=== PATIENT | male | born 1960 | race Caucasian/White ===

== ENCOUNTER 2020-07-29 13:45 | Emergency (ER) | payer MEDICAID, SELFPAY ==
[2020-07-29] VITALS (23 sets, daily range): BP systolic 110–147; BP diastolic 67–80; PULSE 57–94; RESP 17–31; TEMP 36.1; O2SAT 96–100
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
[2020-07-29 14:25] LABS: Abs Immature Grans 0.08 10^3/uL (0.0-0.06); Basophils % 0.5; Eosinophils % 0.6; HCT 48.8 % (40.0-50.0); Immature Grans % 0.2; MCHC 32.8 % (32.0-36.0); MCV 94.6 fL (80-95); MPV 10.6 fL (8.0-11.0); Monocytes % 1.8; Neutrophils % 13.1; Nucleated RBC 0 %; Platelet Count 211 10^3/uL (130-400); RBC 5.16 10^6/uL (4.36-5.78); RDW 12.5 % (11.8-14.1); RDW-SD 43.3 fL
[2020-07-29 14:43] LABS: Absolute Basophil Count 0.19 10^3/uL (0.0-0.2); Absolute Eosinophil Count 0.23 10^3/uL (0.0-0.7); Absolute Lymphocyte Count 31.71 10^3/uL (1.2-3.4); Absolute Monocyte Count 0.68 10^3/uL (0.1-0.8); Absolute Neutrophil Count 4.96 10^3/uL (1.2-6.7)
[2020-07-29 14:45] LABS: WBC 37.84 10^3/uL (4.4-10.8)
[2020-07-29 14:46] LABS: Diff Comment Agrees w/ Instrument; RBC Morphology Normal
[2020-07-29 14:47] LABS: Lymphocytes % 83.8; PTT Activated 19.9 sec (21.0-27.5); Prothrombin Time 9.9 sec (9.3-11.0)
[2020-07-29 14:49] LABS: ALT 19 U/L (16-63); AST 22 U/L (15-37); Albumin 3.9 g/dL (3.4-5.0); Alkaline Phosphatase 81 U/L (46-116); BUN 17 mg/dL (7-18); Bilirubin, Total 0.4 mg/dL (0.2-1.0); CREATININE 0.8 mg/dL (0.70-1.30); Calcium 8.6 mg/dL (8.5-10.1); Chloride 107 mmol/L (98-107); Glucose 118 mg/dL (74-106); Potassium 3.6 mmol/L (3.5-5.1); Sodium 144 mmol/L (136-145); Total Protein 7.1 g/dL (6.4-8.2)
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
[2020-07-29] MEDS: Normal Saline - Diluent 50 ML VIAL IV (15:47)
[2020-07-29] MEDS: Omnipaque 350 MG/ML 100 ML BTL IJ (15:47)
== END 2020-07-29 18:14 | disposition left against medical advice (07) ==
LOC: ER 18:14
PROVIDERS: Emergency Provider Student in an Organized Health Care Education/Training Program; PCP Nurse Practitioner Family
DX: S01.01XA Laceration without foreign body of scalp, initial encounter (principal); S01.81XA Laceration without foreign body of other part of head, initial encounter; S27.0XXA Traumatic pneumothorax, initial encounter; S22.42XA Multiple fractures of ribs, left side, initial encounter for closed fracture; W30.89XA Contact with other specified agricultural machinery, initial encounter; D72.820 Lymphocytosis (symptomatic); Z53.29 Procedure and treatment not carried out because of patient's decision for other reasons
CPT/HCPCS: 12002; 12014; 73552; 74177; 80053; 86850; 86900; 86901; 90471; 99285; 70450; 71260; 72125; 85025; 85610; 85730; 99284; J3490

== ENCOUNTER 2022-09-21 14:00 | Observation (INO) | payer MEDICAID, SELFPAY ==
[2022-09-21] VITALS (10 sets, daily range): BP systolic 110–172; BP diastolic 57–86; PULSE 61–90; RESP 12–20; TEMP 36.6–37.8; O2SAT 92–98; BMI 24.3
--- NOTE | 2022-09-21 14:45 | NUR.NOTE ---
Nursing Note: Assumed care of patient at this time.
--- NOTE | 2022-09-21 15:00 | DI.CT_ITS ---
Exam(s) CT ABDOMEN PELVIS W EXAM: CT ABDOMEN PELVIS W CLINICAL HISTORY: rlq pain. TECHNIQUE: Imaging Protocol: Axial computed tomography images with coronal and sagittal reformatted images were created and reviewed CONTRAST MATERIAL: Intravenous: Omnipaque 350 Contrast volume:100 ml Oral: yes / COMPARISON: CT CT CHEST/ABD/PEL W from 07/29/2020 FINDINGS: ABDOMEN: Lung Bases: Normal where visualized. Liver: Normal density. No measurable mass. Gallbladder and biliary tract: No radiodense calculus or dilation. Pancreas: Normal density, no abnormal calcifications or inflammatory process. Spleen: Normal. Kidneys: Normal size, contour and axis. No radiodense stones or obstructive uropathy. Parapelvic cyst s. No suspicious masses seen. Adrenal glands: No masses seen. Abdominal Aorta: Abdominal portion non-dilated. Soft tissues: Fatty containing umbilical hernia. PELVIS: Bladder: Mild wall thickening. No calculi.No focal mass. Bowel: No obstruction. No bowel wall thickening. Appendix dilated. Appendicoliths seen at base of t he appendix. Surrounding stranding, consistent with appendicitis. Diverticulosis without evidence of diverticulitis.. Peritoneal cavity: No ascites or focal collection. No free air. Bones: Degenerative changes greatest at L5-S1. Reproductive organs: Prostate slightly enlarged. Lymph nodes: Unremarkable. Impression: Findings consistent with acute appendicitis. No perforation or abscess. RADIATION DOSE DELIVERED: 692.09mGy.cm Total DLP DATA REPOSITORY: All CT scans at this facility are submitted to the National Radiology Data Registry (NRDR) Dose Index Registry (DIR) with the [employer] (ACR). RADIATION OPTIMIZATION: All CT scans at this facility use at least one of these dose optimization te chniques: automated exposure control; mA and/or kV adjustment per patient size (includes targeted exa ms where dose is matched to clinical indication); or iterative reconstruction.
[2022-09-21] MEDS: Normal Saline 1,000 ML 1000 ML IV (15:28)
[2022-09-21 15:31] LABS: Lactate 1.2 mmol/L (0.6-1.4)
[2022-09-21 15:33] LABS: Abs Immature Grans 0.16 10^3/uL (0.0-0.06); HCT 49.4 % (40.0-50.0); HGB 16.4 g/dL (13.5-17.5); MCH 31.5 pg (27.0-33.0); MCHC 33.2 % (32.0-36.0); MCV 95 fL (80-95); MPV 10.9 fL (8.0-11.0); Platelet Count 186 10^3/uL (130-400); RDW 12.8 % (11.8-14.1); RDW-SD 44.6 fL
--- NOTE | 2022-09-21 15:35 | ED.GENADUL_ITS ---
Discharge Plan Discharge Details Chief Complaint: Abd Prob Primary Care Provider: Bria Mora ED Provider: Darin Choi Home Meds and New Rx's Prescriptions: No Action No Known Home Meds Medical Decision Making Patient presenting the emergency department chief complaint of abdominal pain. Patient states last night he started having abdominal pain, and diarrhea. Today he has had subjective fever and chills otherwise denies all other symptoms. Patient has no injury or trauma, does not take any medications, no history of abdominal surgeries. Physical exam shows mild right CVA tenderness with significant right lower quadrant tenderness and guarding. Normal active bowel sounds otherwise unremarkable exam. Will check labs and CT imaging. Pending results will give patient ketorolac and IV fluids Patient signed out pending review of labs and CT imaging along with disposition after results. HPI General Mode of arrival: ambulatory . Date/Time Provider Initiated Documentation: 09/21/22 14:30 . Limitations to Documentation: no limitations . Information obtained by: patient and RN notes reviewed . History of Present Illness 62 year old M presents to the emergency department with the chief complaint of Abdominal pain, described as moderate, Quality is described as aching, and is localized to the abdomen. Patient reports no radiation. Patient started experiencing this day(s) (1) and it has been constant. No relieving factors improve symptom(s), No exacerbating factors reported . Patient notes fever/chills, loss of appetite and malaise. Patient did receive the following treatments prior to arrival, none Related Data Home Medications Medication Instructions Recorded Confirmed Unknown [No Known Home Meds] 09/21/22 09/21/22 Allergies Allergy/AdvReac Type Severity Reaction Status Date / Time No Known Drug Allergies Allergy Unverified 09/21/22 14:12 General Stated Complaint: Abd Prob HAWK: 3 Review of Systems Constitutional Constitutional: Denies chills, Reports fever(s) and Reports poor appetite Cardiovascular Cardiovascular: Denies chest pain and Denies dyspnea Respiratory Respiratory: Denies cough and Denies dyspnea Gastrointestinal Gastrointestinal: Reports as per HPI, Reports abdominal pain, Denies melena, Denies change in bowel habits, Denies constipation, Reports diarrhea, Denies nausea and Denies vomiting Genitourinary Genitourinary: Denies hematuria, Denies difficulty urinating, Denies urinary hesitancy, Denies urinary incontinence and Denies urinary urgency Integumentary/Breasts Skin/Breast: Denies rash PFSH All Active Problems Laceration of scalp (Acute) Complex laceration of face (Acute) Pneumothorax on left (Acute) Multiple rib fractures (Acute) Lymphocytosis (Acute) Social History Smoking/Tobacco Use Status: Never Smoking risk assessment performed?: Yes Housing: house Exam Const General: cooperative Orientation: alert, awake and oriented x3 Resp Effort & Inspection: normal respiratory effort and able to speak in complete sentences Auscultation: clear to auscultation bilaterally Cardio Rate: regular rate Rhythm: regular rhythm Heart Sounds: S1 normal and S2 normal GI Palpation: soft, no hepatosplenomegaly, not firm, guarding in the RLQ, no masses, no pulsatile masses, not rigid, no splenomegaly and tender in the RLQ Auscultation: normal bowel sounds General: CVA tenderness on the right Back/Spine/Pelvis Back: CVA tenderness Neuro General: patient alert, patient awake, patient oriented x3, gait normal and moves all extremities Course Vital Signs Vital signs: Vital Signs Temperature 37.2 C 09/21/22 14:08 Pulse 90 09/21/22 14:08 Respiratory Rate 20 09/21/22 14:08 Blood Pressure 155/77 H 09/21/22 14:08 Pulse Oximetry 96 09/21/22 14:08 Temperature 37.2 C 09/21/22 14:08 Temperature Source Oral 09/21/22 14:08 Pulse 90 09/21/22 14:08 Respiratory Rate 20 09/21/22 14:08 Respiratory Effort Normal 09/21/22 15:08 Blood Pressure 155/77 H 09/21/22 14:08 Blood Pressure Position Sitting 09/21/22 14:08 Pulse Oximetry 96 09/21/22 14:08 Oxygen Delivery Method Room Air 09/21/22 14:08 Oxygen Flow Rate 0 09/21/22 14:08 Pain Level 7 09/21/22 14:08 Lab/Test Results Lab/Test Results: Laboratory Tests Range/Units 09/21/22 15:25 VBG Lactate (0.6-1.4) mmol/L 1.2 Sign Out Sign Out Data: Sign Out Comment: Patient pending review of labs and CT imaging for right lower quadrant abdominal pain. Last updated by Darin Choi NP at 09/21/22 15:38
[2022-09-21 15:37] LABS: WBC 40.69 10^3/uL (4.4-10.8)
[2022-09-21 15:45] LABS: Bilirubin Small (Negative); Blood Moderate (Negative); Clarity Clear (Clear); Glucose Negative (Negative); Ketones >=160 mg/dL (Negative); Leukocyte Esterase Negative (Negative); Nitrite Negative (Negative); Specific Gravity >= 1.030 (1.005-1.025); Urobilinogen 0.2 mg/dL (Up to 0.2); pH 5.5 (5-8)
[2022-09-21 15:54] LABS: Bacteria Negative HPF (Negative); C & S Indicated? No; Casts Negative LPF (Negative); Crystals Negative HPF (Negative); Epithelial Cells Rare HPF (Negative); Lipase 22 U/L (16-77); Mucus Trace (Negative); WBC 0-2 HPF (0-5)
[2022-09-21 15:57] LABS: Absolute Lymphocyte Count 26.45 10^3/uL (1.2-3.4); Absolute Monocyte Count 0.81 10^3/uL (0.1-0.8); Absolute Neutrophil Count 13.43 10^3/uL (1.2-6.7)
[2022-09-21 15:58] LABS: Diff Comment Manual Differential; RBC Morphology Normal
[2022-09-21 16:02] LABS: ALT 16 U/L (16-63); AST 19 U/L (15-37); Albumin 4.3 g/dL (3.4-5.0); Alkaline Phosphatase 130 U/L (46-116); Anion Gap 11.9 mmol/L (3-11); BUN 12 mg/dL (7-18); CO2 26.1 mmol/L (21.0-32.0); CREATININE 0.9 mg/dL (0.70-1.30); Calcium 9.3 mg/dL (8.5-10.1); Chloride 101 mmol/L (98-107); Estimated GFR 95.97 (mL/min/1.73m2); Glucose 103 mg/dL (74-106); Magnesium 1.8 mg/dL (1.8-2.4); Potassium 3.9 mmol/L (3.5-5.1); Sodium 139 mmol/L (136-145); Total Protein 8.4 g/dL (6.4-8.2)
[2022-09-21] MEDS: Normal Saline Flush 10 ML SYR IVP ×2 (16:13→22:02)
[2022-09-21] MEDS: Normal Saline - Diluent 50 ML VIAL IJ (16:13)
[2022-09-21] MEDS: Omnipaque 350 MG/ML 100 ML BTL IJ (16:14)
--- NOTE | 2022-09-21 18:33 | DI.VRAD_ITS ---
Addendum created by Lydia Rosario MD on 09/21/2022 6:43:49 PM EDT: This report contains findings that may be critical to patient care. The pertinent findings were communicated via telephone with KAITLIN Sparks at 18:43 EDT on 09/21/2022. The findings were acknowledged and understood. Initial report created on 09/21/2022 6:32:57 PM EDT: PROCEDURE INFORMATION: Exam: CT Abdomen And Pelvis With Contrast Exam date and time: 09/21/2022 16:21 Age: 62 years old Clinical indication: Abdominal pain; Localized; Right lower quadrant (rlq); Patient HX: Rlq pain TECHNIQUE: Imaging protocol: Computed tomography of the abdomen and pelvis with contrast. Contrast material: OMNIPAQUE 350; Contrast volume: 100 ml; Contrast route: INTRAVENOUS (IV); COMPARISON: CT CHEST/ABD/PEL W 07/29/2020 15:40 FINDINGS: Lungs: Minimal dependent subsegmental atelectasis. Liver: No mass. Gallbladder and bile ducts: No calcified stones. No ductal dilation. Pancreas: No ductal dilation. No masses. Spleen: No splenomegaly or focal lesions. Adrenal glands: No mass. Kidneys and ureters: Favor benign parapelvic cysts in the kidneys. No convincing nephrolithiasis. No renal masses. Stomach and bowel: Colonic diverticulosis without diverticulitis. No focal pathology in the small bowel. Appendix: Proximal to mid appendix is decompressed. Distally there is an appendiceal calculus in the appendix is distended to 16 mm with mild mucosal hyperemia, thickening and mild surrounding edema. Intraperitoneal space: No abscess or free air. Vasculature: No abdominal aortic aneurysm. Lymph nodes: No significantly enlarged lymph nodes. Urinary bladder: Bladder wall upper limits of normal for mild degree of distension. Reproductive: Mild prostatic enlargement. Bones/joints: Chronic bony changes with no acute fracture. Soft tissues: Moderate fat-containing umbilical hernia. IMPRESSION: 1. Acute appendicitis. No perforation or abscess. 2. Additional findings as described. Dictated and Authenticated by: Lydia Rosario MD. Ordering:SURESH Webster MD
--- NOTE | 2022-09-21 18:40 | ED.GENADUL_ITS ---
Discharge Plan Disposition Patient Disposition: Admit to [facility] Condition: Stable Discharge Details Chief Complaint: Abd Prob Clinical Impression: Acute appendicitis Primary Care Provider: Bria Mora ED Provider: Phyllis Sparks Home Meds and New Rx's Prescriptions: No Action No Known Home Meds HPI General Mode of arrival: ambulatory . Date/Time Provider Initiated Documentation: 09/21/22 14:30 . Limitations to Documentation: no limitations . Information obtained by: patient and RN notes reviewed . History of Present Illness Quality is described as aching, and is localized to the abdomen. No relieving factors improve symptom(s), No exacerbating factors reported . Patient notes fever/chills, loss of appetite and malaise. Patient did receive the following treatments prior to arrival, none HPI Narrative: Chart reviewed please see notes initiated by Heriberto Choi APRN. Care of patient was assumed pending CAT scan results. Related Data Home Medications Medication Instructions Recorded Confirmed Unknown [No Known Home Meds] 09/21/22 09/21/22 Allergies Allergy/AdvReac Type Severity Reaction Status Date / Time No Known Drug Allergies Allergy Unverified 09/21/22 14:12 General Stated Complaint: Abd Prob HAWK: 3 PFSH All Active Problems (Updated 09/21/22 @ 18:41 by Phyllis Sparks NP) Laceration of scalp (Acute) Complex laceration of face (Acute) Pneumothorax on left (Acute) Multiple rib fractures (Acute) Lymphocytosis (Acute) Acute appendicitis (Acute) Social History Smoking/Tobacco Use Status: Never Smoking risk assessment performed?: Yes Housing: house Course Vital Signs Vital signs: Vital Signs Temperature 37.2 C 09/21/22 14:08 Pulse 90 09/21/22 14:08 Respiratory Rate 20 09/21/22 14:08 Blood Pressure 155/77 H 09/21/22 14:08 Pulse Oximetry 96 09/21/22 14:08 Temperature 37.2 C 09/21/22 14:08 Temperature Source Oral 09/21/22 14:08 Pulse 73 09/21/22 17:15 Respiratory Rate 16 09/21/22 17:15 Respiratory Effort Normal 09/21/22 15:08 Blood Pressure 172/67 H 09/21/22 17:15 Blood Pressure Position Sitting 08/11/23 14:08 Pulse Oximetry 97 09/21/22 17:15 Oxygen Delivery Method Room Air 09/21/22 17:15 Oxygen Flow Rate 0 09/21/22 17:15 Pain Level 3 09/21/22 17:15 Lab/Test Results Lab/Test Results: Laboratory Tests Range/Units 09/21/22 09/21/22 09/21/22 15:25 15:25 15:25 WBC (4.4-10.8) 10^3/uL RBC (4.36-5.78) 10^6/uL Hgb (13.5-17.5) g/dL Hct (40.0-50.0) % MCV (80-95) fL MCH (27.0-33.0) pg MCHC (32.0-36.0) % RDW (11.8-14.1) % Plt Count (130-400) 10^3/uL MPV (8.0-11.0) fL Immature Gran % Neutrophils % Lymphocytes % Monocytes % Eosinophils % Basophils % Nucleated RBC % (0.0-0.3) % Absolute Neutrophils (1.2-6.7) 10^3/uL Absolute Lymphocytes (1.2-3.4) 10^3/uL Absolute Monocytes (0.1-0.8) 10^3/uL Absolute Eosinophils (0.0-0.7) 10^3/uL Absolute Basophils (0.0-0.2) 10^3/uL RBC Morphology VBG Lactate (0.6-1.4) mmol/L 1.2 Sodium (136-145) mmol/L 139 Potassium (3.5-5.1) mmol/L 3.9 Chloride (98-107) mmol/L 101 Carbon Dioxide (21.0-32.0) mmol/L 26.1 Anion Gap (3-11) mmol/L 11.9 H BUN (7-18) mg/dL 12 Creatinine (0.70-1.30) mg/dL 0.9 Est GFR (CKD-EPI 2020) (mL/min/1.73m2) 95.97 Glucose (74-106) mg/dL 103 Calcium (8.5-10.1) mg/dL 9.3 Magnesium (1.8-2.4) mg/dL 1.8 Total Bilirubin (0.2-1.0) mg/dL 1.0 AST (15-37) U/L 19 ALT (16-63) U/L 16 Alkaline Phosphatase (46-116) U/L 130 H Total Protein (6.4-8.2) g/dL 8.4 H Albumin (3.4-5.0) g/dL 4.3 Lipase (16-77) U/L 22 Urine Color (Yellow) Urine Clarity (Clear) Urine pH (5-8) Ur Specific [place] (1.005-1.025) Urine Protein (Negative) mg/dL Urine Ketones (Negative) mg/dL Urine Blood (Negative) Urine Nitrite (Negative) Urine Bilirubin (Negative) Urine Urobilinogen (Up to 0.2) mg/dL Ur Leukocyte Esterase (Negative) Urine RBC (0-2) HPF Urine WBC (0-5) HPF Ur Epithelial Cells (Negative) HPF Urine Crystals (Negative) HPF Urine Bacteria (Negative) HPF Urine Casts (Negative) LPF Urine Mucus (Negative) Ur Culture Indicated? Urine Glucose (Negative) mg/dL Range/Units 09/21/22 09/21/22 15:25 15:25 WBC (4.4-10.8) 10^3/uL 40.69 H* RBC (4.36-5.78) 10^6/uL 5.20 Hgb (13.5-17.5) g/dL 16.4 Hct (40.0-50.0) % 49.4 MCV (80-95) fL 95 MCH (27.0-33.0) pg 31.5 MCHC (32.0-36.0) % 33.2 RDW (11.8-14.1) % 12.8 Plt Count (130-400) 10^3/uL 186 MPV (8.0-11.0) fL 10.9 Immature Gran % 0.0 Neutrophils % 33.0 Lymphocytes % 65.0 Monocytes % 2.0 Eosinophils % 0.0 Basophils % 0.0 Nucleated RBC % (0.0-0.3) % 0.0 Absolute Neutrophils (1.2-6.7) 10^3/uL 13.43 H Absolute Lymphocytes (1.2-3.4) 10^3/uL 26.45 H Absolute Monocytes (0.1-0.8) 10^3/uL 0.81 H Absolute Eosinophils (0.0-0.7) 10^3/uL 0.00 Absolute Basophils (0.0-0.2) 10^3/uL 0.00 RBC Morphology Normal VBG Lactate (0.6-1.4) mmol/L Sodium (136-145) mmol/L Potassium (3.5-5.1) mmol/L Chloride (98-107) mmol/L Carbon Dioxide (21.0-32.0) mmol/L Anion Gap (3-11) mmol/L BUN (7-18) mg/dL Creatinine (0.70-1.30) mg/dL Est GFR (CKD-EPI 2020) (mL/min/1.73m2) Glucose (74-106) mg/dL Calcium (8.5-10.1) mg/dL Magnesium (1.8-2.4) mg/dL Total Bilirubin (0.2-1.0) mg/dL AST (15-37) U/L ALT (16-63) U/L Alkaline Phosphatase (46-116) U/L Total Protein (6.4-8.2) g/dL Albumin (3.4-5.0) g/dL Lipase (16-77) U/L Urine Color (Yellow) Yellow Urine Clarity (Clear) Clear Urine pH (5-8) 5.5 Ur Specific [place] (1.005-1.025) >= 1.030 H Urine Protein (Negative) mg/dL Trace H Urine Ketones (Negative) mg/dL >=160 H Urine Blood (Negative) Moderate H Urine Nitrite (Negative) Negative Urine Bilirubin (Negative) Small H Urine Urobilinogen (Up to 0.2) mg/dL 0.2 Ur Leukocyte Esterase (Negative) Negative Urine RBC (0-2) HPF 3-5 H Urine WBC (0-5) HPF 0-2 Ur Epithelial Cells (Negative) HPF Rare Urine Crystals (Negative) HPF Negative Urine Bacteria (Negative) HPF Negative Urine Casts (Negative) LPF Negative Urine Mucus (Negative) Trace Ur Culture Indicated? No Urine Glucose (Negative) mg/dL Negative Sign Out Sign Out Data: Sign Out Comment: Patient pending review of labs and CT imaging for right lower quadrant abdominal pain. Last updated by Darin Choi NP at 09/21/22 15:38
[2022-09-21] MEDS: PIPERACILLIN/TAZO 3.375 GM in Normal Saline 50 ML IVPB (18:50)
--- NOTE | 2022-09-21 19:06 | NUR.NOTE ---
Nursing Note: Report to Angeles QUIROGA
--- NOTE | 2022-09-21 19:13 | HPE_ITS ---
Date of service: 09/21/22 Time of Service: 18:45 Assessment and Plan Assessment and plan (1) Acute appendicitis: Status: Acute Assessment and plan: Mr. Sandhu is a pleasant 62 year old male with acute appendicitis. He came to the ER with RLQ pain and diarrhea and 16 hours. Discussed the pathophysiology of appendicitis. We discussed the treatment option of Laparoscopic appendectomy (possibly open) vs antibiotic treatment. We discussed pros and cons of both. Patient wishes to proceed with Laparoscopic appendectomy. He had a good understanding or the procedure and its possible complications after hour converstaion. Risks, benefits and complications have been reviewed. Complications include but are not limited to bleeding, infection, injury to adjacent bowel, abscess formation, staple line leak, inability to do the procedure laparoscopically and adverse reaction to the medications. Questions were entertained and answered to their satisfaction and they wished to proceed. No guarantees were given or implied. History of Present Illness Consults Consult date: 09/21/22 Requesting physician: Phyllis Sparks Narrative: Mr. Alvarado is a pleasant 62 year old male who cam to the ER complaining of RLQ pain and diarrhea for 16 hours. 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 He took a shower and then started with diarrhea and pain which lasted all night and into today. When his got home from work she brought him to the ER. Workup in the ER showed a Leukocytosis of > 40,000. He had a lymphocytosis back in 2020 when he was seen in the ER. he never followed up with his PCP about it. He has no splenomegally on CT scan. He has no easy bruising or easy bleeding. He has no Cardiac history or pulmonary complaints. He does have blood in his urine today but no Bacteria or leukocyte esteraces. I reviewed the CT scan myself. CT scan showes a dilated tip of the appendix with a fecolith. Review of Systems Constitutional Constitutional: Reports fever(s), Denies headache(s) and Reports poor appetite Eyes Eyes: Denies change in vision ENT Ears, Nose, Mouth, and Throat: Denies change in voice, Denies dysphagia and Denies headache(s) Cardiovascular Cardiovascular: Denies chest pain, Denies chest pain at rest, Denies chest pain with activity, Denies palpitations, Denies dyspnea and Denies dyspnea on exertion Respiratory Respiratory: Denies cough, Denies dyspnea and Denies dyspnea on exertion Gastrointestinal Gastrointestinal: Reports as per HPI, Denies dysphagia, Denies dyspepsia and Denies heartburn Genitourinary Genitourinary: Reports system reviewed and no additional complaints, except as documented Musculoskeletal Musculoskeletal: Reports system reviewed and no additional complaints, except as documented Integumentary/Breasts Skin/Breast: Reports system reviewed and no additional complaints, except as documented Neurologic Neurologic: Reports system reviewed and no additional complaints, except as documented and Denies headache(s) Psychiatric Psychiatric: Reports system reviewed and no additional complaints, except as documented Endocrine Endocrine: Reports system reviewed and no additional complaints, except as documented and Denies palpitations Hematologic/Lymphatic Hematologic/Lymphatic: Reports system reviewed and no additional complaints, except as documented Allergic/Immunologic Allergic/Immunologic: Reports system reviewed and no additional complaints, except as documented PFSH All Active Problems Lymphocytosis (Acute) Acute appendicitis (Acute) Medical History Complex laceration of face Laceration of scalp Multiple rib fractures Pneumothorax on left Social History (Updated 09/21/22 @ 19:19 by Juju Thompson MD) Smoking/Tobacco Use Status: Never Smoking risk assessment performed?: Yes Alcohol Intake: current Alcohol Intake frequency: holidays/special occasions only Drug use: Never Household members: spouse Housing: house current occupation: owns his own [employer] business Meds Allergies and Home Medications Allergies Allergy/AdvReac Type Severity Reaction Status Date / Time No Known Drug Allergies Allergy Unverified 09/21/22 14:12 Home Medications Medication Instructions Recorded Confirmed Type Unknown [No Known Home Meds] 09/21/22 09/21/22 History Exam Const General: cooperative, healthy appearing, comfortable and no acute distress Nutritional Appearance: thin Orientation: alert, awake and oriented x3 HENMT Head: normocephalic and atraumatic Resp Effort & Inspection: normal respiratory effort Auscultation: clear to auscultation bilaterally Cardio Rate: regular rate Rhythm: regular rhythm Heart Sounds: no gallops, no murmurs and no rubs GI Inspection: normal to inspection Palpation: soft, no hepatosplenomegaly and tender in the RLQ (no guarding or rebound) General: deferred Results Imaging Abdomen CT scan report/results: report reviewed and image reviewed CT scan - pelvis: report reviewed and image reviewed Labs 09/21/22 15:25 09/21/22 15:25 Labs: Laboratory Results - last 24 hr 09/21/22 09/21/22 09/21/22 15:25 15:25 15:25 WBC RBC Hgb Hct MCV MCH MCHC RDW Plt Count MPV Immature Gran % Neutrophils % Lymphocytes % Monocytes % Eosinophils % Basophils % Nucleated RBC % Absolute Neutrophils Absolute Lymphocytes Absolute Monocytes Absolute Eosinophils Absolute Basophils RBC Morphology VBG Lactate 1.2 Sodium 139 Potassium 3.9 Chloride 101 Carbon Dioxide 26.1 Anion Gap 11.9 H BUN 12 Creatinine 0.9 Est GFR (CKD-EPI 2020) 95.97 Glucose 103 Calcium 9.3 Magnesium 1.8 Total Bilirubin 1.0 AST 19 ALT 16 Alkaline Phosphatase 130 H Total Protein 8.4 H Albumin 4.3 Lipase 22 Urine Color Urine Clarity Urine pH Ur Specific [place] Urine Protein Urine Ketones Urine Blood Urine Nitrite Urine Bilirubin Urine Urobilinogen Ur Leukocyte Esterase Urine RBC Urine WBC Ur Epithelial Cells Urine Crystals Urine Bacteria Urine Casts Urine Mucus Ur Culture Indicated? Urine Glucose 09/21/22 09/21/22 15:25 15:25 WBC 40.69 H* RBC 5.20 Hgb 16.4 Hct 49.4 MCV 95 MCH 31.5 MCHC 33.2 RDW 12.8 Plt Count 186 MPV 10.9 Immature Gran % 0.0 Neutrophils % 33.0 Lymphocytes % 65.0 Monocytes % 2.0 Eosinophils % 0.0 Basophils % 0.0 Nucleated RBC % 0.0 Absolute Neutrophils 13.43 H Absolute Lymphocytes 26.45 H Absolute Monocytes 0.81 H Absolute Eosinophils 0.00 Absolute Basophils 0.00 RBC Morphology Normal VBG Lactate Sodium Potassium Chloride Carbon Dioxide Anion Gap BUN Creatinine Est GFR (CKD-EPI 2020) Glucose Calcium Magnesium Total Bilirubin AST ALT Alkaline Phosphatase Total Protein Albumin Lipase Urine Color Yellow Urine Clarity Clear Urine pH 5.5 Ur Specific [place] >= 1.030 H Urine Protein Trace H Urine Ketones >=160 H Urine Blood Moderate H Urine Nitrite Negative Urine Bilirubin Small H Urine Urobilinogen 0.2 Ur Leukocyte Esterase Negative Urine RBC 3-5 H Urine WBC 0-2 Ur Epithelial Cells Rare Urine Crystals Negative Urine Bacteria Negative Urine Casts Negative Urine Mucus Trace Ur Culture Indicated? No Urine Glucose Negative Last Vital Signs Temp 100.0 F H 09/21/22 18:51 Pulse 75 09/21/22 18:51 Resp 18 09/21/22 18:51 BP 168/86 H 09/21/22 18:51 Pulse Ox 95 09/21/22 18:51 Time Spent Time spent with Patient: <40 minutes Time was spent: preparing to see the patient(eg.review tests), referring, communicating with other health child care counselor, indepentently interpreting results and counseling the patient
--- NOTE | 2022-09-21 19:27 | ANES.PREOP_ITS ---
General Info Date of Service Date Performed: 09/21/22 Height: 5 ft 9 in Weight: 74.843 kg Body Mass Index (BMI): 24.3 Meds Allergies and Home Medications Allergies Allergy/AdvReac Type Severity Reaction Status Date / Time No Known Drug Allergies Allergy Unverified 09/21/22 14:12 Home Medication Medication Instructions Recorded Unknown [No Known Home Meds] 09/21/22 Current Visit Medications: Current Medications Generic Name Dose Route Start Last Admin Trade Name Amy PRN Reason Stop Dose Admin IV Miscellaneous Supplies 1 each 09/21/22 15:15 Iv Access-Emergency Dept IV DIRECTED RAPHAEL Iohexol 100 ml 09/21/22 16:15 09/21/22 16:14 Omnipaque 350 Mg/Ml 100 Ml Btl IJ 10/21/22 23:59 100 ml DIRECTED RAPHAEL Administration Sodium Chloride 0 ml 09/21/22 15:09 09/21/22 16:13 Normal Saline Flush 10 Ml Syr IVP 10 ml PRN PRN Administration Sodium Chloride 50 ml 09/21/22 16:15 09/21/22 16:13 Normal Saline - Diluent 50 Ml Vial IJ 50 ml .FOR DI USE RAPHAEL Administration PFSH Active Problems Active Problems: Problem Status Onset Code Lymphocytosis D72.820 Acute appendicitis K35.80 Medical History Medical History Complex laceration of face Laceration of scalp Multiple rib fractures Pneumothorax on left Tobacco Smoking/Tobacco Use Status: Never Alcohol Alcohol Intake: current Alcohol intake frequency: holidays/special occasions only Substance Use Substance use: Never Vital Signs and Lab Results Vital Signs Most Recent Vital Signs in EMR: Most Recent Vital Signs Temp Pulse Resp BP Pulse Ox 37.8 C H 75 18 168/86 H 95 09/21/22 18:51 09/21/22 18:51 09/21/22 18:51 09/21/22 18:51 09/21/22 18:51 Lab Results 09/21/22 15:25 09/21/22 15:25 Blood Type / Crossmatch: No Data to Display Complete Blood Count: White Blood Count 40.69 10^3/uL (4.4-10.8) H* 09/21/22 15:25 Red Blood Count 5.20 10^6/uL (4.36-5.78) 09/21/22 15:25 Hemoglobin 16.4 g/dL (13.5-17.5) 09/21/22 15:25 Hematocrit 49.4 % (40.0-50.0) 09/21/22 15:25 Platelet Count 186 10^3/uL (130-400) 09/21/22 15:25 Venous Blood Lactate 1.2 mmol/L (0.6-1.4) 09/21/22 15:25 Complete Metabolic Panel: Sodium 139 mmol/L (136-145) 09/21/22 15:25 Potassium 3.9 mmol/L (3.5-5.1) 09/21/22 15:25 Chloride 101 mmol/L (98-107) 09/21/22 15:25 Carbon Dioxide 26.1 mmol/L (21.0-32.0) 09/21/22 15:25 BUN 12 mg/dL (7-18) 09/21/22 15:25 Creatinine 0.9 mg/dL (0.70-1.30) 09/21/22 15:25 Est GFR (CKD-EPI 2020) 95.97 (mL/min/1.73m2) 09/21/22 15:25 Magnesium 1.8 mg/dL (1.8-2.4) 09/21/22 15:25 Calcium 9.3 mg/dL (8.5-10.1) 09/21/22 15:25 Albumin 4.3 g/dL (3.4-5.0) 09/21/22 15:25 Glucose 103 mg/dL (74-106) 09/21/22 15:25 Liver Function Panel: Alanine Aminotransferase (ALT/SGPT) 16 U/L (16-63) 09/21/22 15: 25 Aspartate Amino Transf (AST/SGOT) 19 U/L (15-37) 09/21/22 15:25 Coagulation Panel: No Data to Display Cardiac Panel: No Data to Display Arterial Blood Gas: No Data to Display Venous Blood Gas: No Data to Display Pancreas Panel: Lipase 22 U/L (16-77) 09/21/22 15:25 Thyroid Panel: No Data to Display Infectious Disease: No Data to Display Blood Cultures: No Data to Display Toxicology Panel: No Data to Display Anesthesia Assessment and Plan Anesthesia History Personal History: No History of Anesthesia Complications Family History: No Family History of Anesthesia Complications Exercise Tolerance Exercise Tolerance: Metabolic Equivalents>4 Pertinent Negatives Pertinent Negatives: No Symptoms of GERD Cardiac & Pulmonary Exam Cardiac Exam: Normal S1/S2 Heart Sounds Pulmonary Exam: Clear Bilateral Breath Sounds Implantable Cardiac Device Does patient have a Pacemaker or an ICD?: No Airway Exam Known Difficult Airway: No Mallampati Class: 1 Mouth Opening: Normal (> 3cm) Thyromental Distance: Greater than 3 cm Neck Range of Motion: Full ROM Neck Circumference: Normal Teeth Condition: Normal Dentition ASA Classification ASA Score: ASA 2 Emergency Case?: Yes NPO Status NPO Status: NPO Clear Liquids>2 hours and NPO Small Non-Fatty Meal >6 hours Anesthesia Plan Resuscitation Status: Full Code Anesthesia Technique: General Anesthesia Airway Planned: Endotracheal Tube Monitors Used: Standard Monitors
[2022-09-21] MEDS: Lactated Ringers 1,000 ML 30 ML IV (19:50)
[2022-09-21] MEDS: Bupivacaine 0.25% Pres-Free 30 ML VIAL (20:34)
--- NOTE | 2022-09-21 20:41 | APP_PTH ---
PATIENT: Michael Alvarado LOC: U#:[id number] AGE/SX: 62/M ROOM: [id number] RE09/21/[address]: Juju Thompson MD : 1960 BED: A DIS: 09/22/2022 SPEC #: [id number] RECD: 09/24/22 13:02 STATUS: SAL REQ #: [id number] CARL: 09/21/22 20:[address]: Juju Thompson DEPT: Surgical Specimen RECD BY: Staci Douglas ENTERED: 09/24/22 13:05 SP TYPE: Appendix OTHR DR: Bria Mora Tissues: 1 - APPENDIX NOT INCIDENTAL Procedures: GROSS AND MICRO LEVEL 3 Comments: [id number]
--- NOTE | 2022-09-21 21:20 | W.ANESPOSTOP ---
Postoperative Evaluation Date, Time and Location Date Performed: 09/21/22 Time Performed: 21:20 Patient Location: PACU Vital Signs Most Recent Imported Vital Signs: Most Recent Vital Signs Temp Pulse Resp BP Pulse Ox 37.2 C 78 12 124/62 96 09/21/22 21:18 09/21/22 21:18 09/21/22 21:18 09/21/22 21:18 09/21/22 21:18 Pain Score Most Recent Pain Score: Most Recent Pain Score Pain Level 0 09/21/22 21:18 Assessment Mental Status: Awake (Alert & Oriented to Patient Baseline) Airway and Respiratory Function: Patent airway with normal (patient baseline) respiratory exam Cardiovascular Function: Hemodynamically Stable Hydration Status: Adequately Hydrated Nausea & Vomiting: No Nausea or Vomiting Pain: Pt. Denies Any Pain Peripheral Nerve Block: Patient did not receive a nerve block
--- NOTE | 2022-09-21 21:22 | ROE_ITS ---
Date of service: 09/21/22 Time of Service: 21:22 Operative Note Operative Note DATE OF PROCEDURE: 09/21/22 PRE-OP DIAGNOSIS: acute appendicitis POST-OP DIAGNOSIS: same PROCEDURE: Laparoscopic Appendectomy SURGEON: Juju Thompson [employer] RN: Monisha Marcano ANESTHESIA TYPE: Local By Surgeon and General LMA/ETT Refer to Anesthesia Record ESTIMATED BLOOD LOSS: 25 PATHOLOGY: other (appendix) COMPLICATIONS: None Patient was transported to: PACU Patient's condition: stable Indications: Mr. Sandhu is a pleasant 62 year old male with acute appendicitis. He came to the ER with RLQ pain and diarrhea and 16 hours. Discussed the pathophysiology of appendicitis. We discussed the treatment option of Laparoscopic appendectomy (possibly open) vs antibiotic treatment. We discussed pros and cons of both. Patient wishes to proceed with Laparoscopic appendectomy. He had a good understanding or the procedure and its possible complications after hour converstaion. Risks, benefits and complications have been reviewed. Complications include but are not limited to bleeding, infection, injury to adjacent bowel, abscess formation, staple line leak, inability to do the procedure laparoscopically and adverse reaction to the medications. Questions were entertained and answered to their satisfaction and they wished to proceed. No guarantees were given or implied. Findings: retrocecal appendix with tip dilated and ocated next to the Gallbladder Procedure Description: After informed consent was obtained the patient was taken to the operating room placed in the supine position, SCDs were applied as well as monitors. A timeout was done. The patient was then placed under general anesthesia and intubated without any difficulty. At this point the abdomen was prepped and draped in a sterile surgical fashion with chlorhexidine. A second timeout was done and the patient's name, date of , operation to be performed, DVT prophylaxis, antibiotic given, and fire risk was assessed. 0.25% Bupivocaine was injected into the dermis just above the umbilicus. A small 5 mm incision was made with an 11 blade. The subcutaneous tissue was dissected with a hemostat down to an umbilical hernia. The skin was grasped with penetrating towel clamps on either side of the incision and then using a Visiport a 5 mm port was placed under direct visualization through the hernia defect into the abdomen. The abdomen was insufflated. Local anesthetic was then injected just above the pubic symphysis just to the right of midline. A small 5 mm incision was made with an 11 blade and another 5 mm port was placed under direct visualization into the abdomen. The local anesthetic was then injected in the left lower quadrant area and a 12 mm incision was made with an 11 blade. A 12 mm port was then placed under direct visualization. The patient's bed was then turned to the left and head down allowing me to sweep of the small bowel out of the right lower quadrant. The cecum was identied at the level of the kidney and gently grasped. The appendix was identified going under the cecum. The tip was visualized at the Gallbladder. The tip was thickened and swollen. The tip felt rubbery. An opening was made in the mesentery and using a laparoscopic straight stapler the appendix was then transected at the junction with the cecum. No purulent fluid was noted. The appendix was grasped at the neck and pulled up slightly allowing me to visualize the mesoappendix. Using the laparoscopic LigaSure the mesoappendix was slowly transected. The appendix was placed into an Endo Catch bag and removed through the 12 mm port site. The port was placed back into the abdomen and the staple line was identified. No bleeding was noted. The transected mesentery was identified and no bleeding was noted. The abdomen was irrigated with 1 L of fluid. The 2 5 mm ports were then removed under direct visualization and no bleeding was noted from the fascia. The insufflation was stopped and the 12 mm port was removed. The 12 mm port site fascia was closed with a 0 Vicryl [id number] suture. The umbilical hernia defect was also closed with a 0 Vicryl figure of eight suture. The skin was then closed with 4-0 Vicryl. The skin was cleaned and dried and dermabond was applied. The patient was woken up, extubated and taken back to recovery room in stable condition. There were no immediate complications. Sponge, instrument and needl e counts were correct at the end of the case x2.
[2022-09-21] MEDS: Pantoprazole 40 MG VIAL IVP (22:02)
[2022-09-22] MEDS: PIPERACILLIN/TAZO 3.375 GM in Normal Saline 50 ML IVPB ×2 (01:39→08:30)
[2022-09-22] MEDS: Normal Saline Flush 10 ML SYR IVP (01:40)
[2022-09-22 01:51] VITALS: BP 155/83; PULSE 52; RESP 18; TEMP 36.3; O2SAT 100
[2022-09-22] MEDS: Lactated Ringers 1,000 ML 30 ML IV (03:02)
[2022-09-22 04:34] VITALS: BP 112/64; PULSE 64; RESP 16; TEMP 36.5; O2SAT 96
[2022-09-22 07:27] VITALS: BP 126/71; PULSE 67; RESP 16; TEMP 36.5; O2SAT 96
[2022-09-22] MEDS: Docusate Sodium 100 MG CAP PO (08:30)
--- NOTE | 2022-09-22 11:08 | W.PM.DS.N ---
Date of service: 09/22/22 Time of Service: 11:09 DS: Diagnosis Discharge Diagnosis (1) Acute appendicitis: Status: Acute Discharge Plan Disposition Patient Disposition: Home Condition: Stable Discharge Details Reason For Visit: Acute Appendicitis Admit Date/Time: 09/21/22 21:16 Admit Provider: Juju Thompson Attending Provider: Juju Thompson Primary Care Provider: Bria Mora Hospital Course Hospital Course: Mr Alvarado is POD #1 s/p Lap. Appi. He is doing very well. He has no pain today. He feels very well. No fevers overnight. We discussed the surgery and the findings. He will be discharged Home We discussed return precautions. Home Meds and New Rx's Prescriptions: Continued No Known Home Meds Discharge Instructions Instructions: Laparoscopic Appendectomy (DC) Additional Instructions: Activity at Home after surgery: 1. Make sure you walk outside at least 4 times per day 2. You should be able to climb a flight of stairs 3. No driving while in pain or taking pain medications 4. No strenuous activity or heavy lifting for 2 weeks (laparoscopic surgery) Diet, Nutrition, & wound healin. Avoid alcohol until after you are recovered from your surgery 2. Make sure to eat plenty of lean protein (meat, fish, eggs, cottage cheese, beans) 3. Eat a variety of fruits and vegetables. Eat plenty of high fiber foods to avoid constipation. 4. Drink plenty of liquids to stay hydrated and avoid constipation Pain Medications: 1. Tylenol 650mg every 6 hours as needed and Ibuprofen 600 mg every 6 hours as needed. You may alternate between the 2 medications every 3 hours 2. If a narcotic has been prescribed take as directed only for breakthrough pain For Constipation: 1. Take Milk of Magnesia or MiraLax as needed for constipation Other: 1. You may shower daily. Do not scrub the incisions 2. Do not soak the incisions for 1 week 3. You may alternate ice and heat as needed for pain and swelling Wound Care: 1. Keep the incisions clean and dry Please call our office if you develop: 1. Fevers >101.5 2. Nausea or Vomiting 3. Worsening pain 4. Redness and thick discharge from the wounds If after hours please call the Hospital at and ask to speak to the on-call surgeon Dr. Thompson's cell phone: [phone] Referrals: Juju Thompson MD [ [facility] ST[facility]FF [facility]YSICIAN] - Activity:: see above Equipment/Supplies:: No Equipment Needed Diet:: As Tolerated Discharge Orders Discharge Orders: Discharge Order (Routine); Ordered 09/22/22 Ordered By: Juju Thompson DS: Summary Time Spent with Patient providing and/or coordinating discharge services: Less than 30 minutes Status at Discharge Functional status at discharge: independent ambulation Overall status at discharge: patient is back to baseline Mental Status: mental status grossly normal Speech and Movement: speech and movement normal Mood: congruent mood Affect: normal affect Exam Const General: cooperative, comfortable and no acute distress Nutritional Appearance: thin Orientation: alert and oriented x3 HENMT Head: normocephalic and atraumatic Resp Effort & Inspection: normal respiratory effort Auscultation: clear to auscultation bilaterally Cardio Rate: regular rate Rhythm: regular rhythm GI Inspection: incision (c/d/i) Palpation: soft, no hepatosplenomegaly and nontender Psych Mental Status: mental status grossly normal Speech and Movement: speech and movement normal Mood: congruent mood Affect: normal affect DS: Data Vitals/I&O Vitals and I&O: Vital Signs Temperature 97.7 F 09/22/22 07:27 Temperature Source Tympanic 09/22/22 07:27 Pulse 67 09/22/22 07:27 Pulse Rhythm Irregular 09/22/22 08:15 Respiratory Rate 16 09/22/22 07:27 Respiratory Effort Normal 09/22/22 08:15 Respiratory Depth Normal 09/22/22 08:15 Respiratory Pattern Normal 09/22/22 08:15 Blood Pressure 126/71 09/22/22 07:27 Blood Pressure Position Sitting 09/21/22 14:08 Pulse Oximetry 96 09/22/22 07:27 Respiratory End-tidal CO2 32 09/21/22 21:23 Oxygen Delivery Method Room Air 09/22/22 07:27 Oxygen Flow Rate 0 09/22/22 07:27 Pain Level 0 09/22/22 07:27 Intake & Output 09/21/22 09/21/22 09/22/22 11:59 23:59 11:59 Intake Total 1650 / 1650 710.0 / 710.0 Output Total 625 / 625 Balance 1650 / 1650 85.0 / 85.0 Weight 165 lb Intake: IV 1650 / 1650 510.0 / 510.0 Oral 200 / 200 Output: Urine 625 / 625 Other: Urine Color Yellow Urine Appearance Clear Cloudy Data Completed and Pending Labs on day of discharge: Labs from last 24 hours 09/21/22 09/21/22 09/21/22 15:25 15:25 15:25 WBC 40.69 H* RBC 5.20 Hgb 16.4 Hct 49.4 MCV 95 MCH 31.5 MCHC 33.2 RDW 12.8 Plt Count 186 MPV 10.9 Immature Gran % 0.0 Neutrophils % 33.0 Lymphocytes % 65.0 Monocytes % 2.0 Eosinophils % 0.0 Basophils % 0.0 Nucleated RBC % 0.0 Absolute Neutrophils 13.43 H Absolute Lymphocytes 26.45 H Absolute Monocytes 0.81 H Absolute Eosinophils 0.00 Absolute Basophils 0.00 RBC Morphology Normal VBG Lactate Sodium 139 Potassium 3.9 Chloride 101 Carbon Dioxide 26.1 Anion Gap 11.9 H BUN 12 Creatinine 0.9 Est GFR (CKD-EPI 2020) 95.97 Glucose 103 Calcium 9.3 Magnesium 1.8 Total Bilirubin 1.0 AST 19 ALT 16 Alkaline Phosphatase 130 H Total Protein 8.4 H Albumin 4.3 Lipase Urine Color Yellow Urine Clarity Clear Urine pH 5.5 Ur Specific [place] >= 1.030 H Urine Protein Trace H Urine Ketones >=160 H Urine Blood Moderate H Urine Nitrite Negative Urine Bilirubin Small H Urine Urobilinogen 0.2 Ur Leukocyte Esterase Negative Urine RBC 3-5 H Urine WBC 0-2 Ur Epithelial Cells Rare Urine Crystals Negative Urine Bacteria Negative Urine Casts Negative Urine Mucus Trace Ur Culture Indicated? No Urine Glucose Negative 09/21/22 09/21/22 15:25 15:25 WBC RBC Hgb Hct MCV MCH MCHC RDW Plt Count MPV Immature Gran % Neutrophils % Lymphocytes % Monocytes % Eosinophils % Basophils % Nucleated RBC % Absolute Neutrophils Absolute Lymphocytes Absolute Monocytes Absolute Eosinophils Absolute Basophils RBC Morphology VBG Lactate 1.2 Sodium Potassium Chloride Carbon Dioxide Anion Gap BUN Creatinine Est GFR (CKD-EPI 2020) Glucose Calcium Magnesium Total Bilirubin AST ALT Alkaline Phosphatase Total Protein Albumin Lipase 22 Urine Color Urine Clarity Urine pH Ur Specific [place] Urine Protein Urine Ketones Urine Blood Urine Nitrite Urine Bilirubin Urine Urobilinogen Ur Leukocyte Esterase Urine RBC Urine WBC Ur Epithelial Cells Urine Crystals Urine Bacteria Urine Casts Urine Mucus Ur Culture Indicated? Urine Glucose PFSH All Active Problems Lymphocytosis (Acute) Acute appendicitis (Acute) Medical History Complex laceration of face Laceration of scalp Multiple rib fractures Pneumothorax on left Social History Smoking/Tobacco Use Status: Never Smoking risk assessment performed?: Yes Alcohol Intake: current Alcohol Intake frequency: holidays/special occasions only Drug use: Never Household members: spouse Housing: house current occupation: owns his own [employer] business Time Spent with Patient Time Spent with Patient: 45-69 minutes Time was spent: preparing to see the patient(eg.review tests), obtaining and/or reviewing separately otained hiistory, indepentently interpreting results, counseling the patient and care coordination
== END 2022-09-22 12:46 | disposition home or self-care (01) ==
LOC: ER 19:02 → DSU 19:41 → MS 21:49
PROVIDERS: Nurse Practitioner Family; Admitting Provider Surgery; Emergency Provider Nurse Practitioner Acute Care; PCP Nurse Practitioner Family; Visit Provider Surgery
PROC: 0DTJ4ZZ Resection of Appendix, Percutaneous Endoscopic Approach (ICD-10-PCS; CPT 44970; principal; 2022-09-21 20:00)
DX: K35.80 Unspecified acute appendicitis (principal); D72.820 Lymphocytosis (symptomatic); K42.9 Umbilical hernia without obstruction or gangrene; K38.1 Appendicular concretions
CPT/HCPCS: 44970; 80053; 83690; 96361; 96365; 96366; 99285; 74177; 81003; 81015; 83605; 83735; 85025; 88304; J0131; J1100; J1885; J2001; J2405; J2543; J3010; J3490

== ENCOUNTER 2023-01-25 15:43 | Outpatient (REF) | payer MEDICAID, SELFPAY ==
[2023-01-25 15:47] LABS: Abs Immature Grans 0.07 10^3/uL (0.0-0.06); HCT 51.1 % (40.0-50.0); HGB 16.6 g/dL (13.5-17.5); MCH 31.4 pg (27.0-33.0); MCHC 32.5 % (32.0-36.0); MCV 97 fL (80-95); MPV 11.8 fL (8.0-11.0); Platelet Count 199 10^3/uL (130-400); RBC 5.28 10^6/uL (4.36-5.78); RDW 13.2 % (11.8-14.1); RDW-SD 47.5 fL
[2023-01-25 16:02] LABS: Calculated LDL 187 mg/dL (<100); Cholesterol 269 mg/dL (<200); HDL Cholesterol 68 mg/dL (40-60); Triglyceride 70 mg/dL (<150)
[2023-01-25 16:13] LABS: Hemoglobin A1C 5.4 % (<5.7)
[2023-01-25 16:40] LABS: WBC 37.72 10^3/uL (4.4-10.8)
[2023-01-25 16:41] LABS: Absolute Lymphocyte Count 32.44 10^3/uL (1.2-3.4); Absolute Monocyte Count 1.51 10^3/uL (0.1-0.8); Absolute Neutrophil Count 3.77 10^3/uL (1.2-6.7); Atypical Lymphocytes % 1
[2023-01-25 16:42] LABS: Diff Comment Manual Differential; RBC Morphology Normal
== END 2023-01-25 15:44 | disposition home or self-care (01) ==
LOC: NCHCN 15:43
PROVIDERS: PCP Nurse Practitioner Family; Visit Provider Nurse Practitioner Family
DX: D72.829 Elevated white blood cell count, unspecified (principal); Z13.220 Encounter for screening for lipoid disorders; Z13.1 Encounter for screening for diabetes mellitus
CPT/HCPCS: 80061; 83036; 85025

== ENCOUNTER 2024-09-13 09:56 | Emergency (ER) | payer MEDICARE, BC, SELFPAY ==
[2024-09-13] VITALS (13 sets, daily range): BP systolic 162–184; BP diastolic 84–85; PULSE 63–81; RESP 18–28; TEMP 36.4; O2SAT 95–98
--- NOTE | 2024-09-13 10:00 | RT.EKG_ITS ---
APPROVED REPORT Exam: Resting ECG Reason for Exam: sob Patient Location: E HR:60 bpm ECG Measurements Heart Rate 60 AXIS HI 136 P 39 QRSd 84 QRS 51 QT 409 T 53 QTc 410 Conclusion Sinus rhythm...normal P axis, V-rate 60- 99 Sinus Rhythm. NO prior for comparriosn. WD
--- NOTE | 2024-09-13 10:00 | DI.RAD_ITS ---
Exam(s) XR CHEST 2V PA LATERAL EXAM: XR CHEST 2V PA LATERAL CLINICAL HISTORY: cough, fever. TECHNIQUE: 2D digital imaging was performed. COMPARISON: CT CT ABDOMEN PELVIS W from 09/21/2022 FINDINGS: 2 views: Heart size is normal. The mediastinum is not widened. The left lung is clear. However, there is some mild infiltrate in the lateral right lung field. Difficult to determine if this is in the right upper lobe or superior segment of the right lower lobe. No obvious pleural effusions. IMPRESSION: Mid right lung infiltrate which appears somewhat nodular. Recommend imaging follow-up to resolution to rule out neoplasm. There are no obvious pleural effusions. DATA REPOSITORY: RADIATION DOSE DELIVERED:
--- NOTE | 2024-09-13 10:09 | ED.GENADUL_ITS ---
Discharge Plan Disposition Patient Disposition: Home Condition: Stable Discharge Details Clinical Impression: Pneumonia Primary Care Provider: Olu Shukla ED Provider: Catherine Hussein Home Meds and New Rx's Prescriptions: New amoxicillin-pot clavulanate 875-125 mg tablet 1 tab PO BID Qty: 14 0RF azithromycin 250 mg tablet 250 mg PO DAILY 4 Days Qty: 4 0RF Rx Instructions: start on day 2 of therapy Discharge Instructions Instructions: Community-Acquired Pneumonia, Adult (DC) Additional Instructions: Take antibiotic as prescribed. Follow-up with primary care for blood pressure recheck. Discharge Data Discharge Physician: Catherine Hussein [facility] General Date/Time Provider Initiated Documentation: 09/13/24 10:00 . HPI Narrative: 64-year-old male presents for evaluation of cough. Patient has had a cough for the last 2 to 3 days. There is some blood-tinged sputum. He had a fever yesterday. Denies any nausea or vomiting. He did have decreased appetite yesterday. No leg pain or swelling he is a non-smoker. No history of asthma or COPD. He states this feels similar to when he had pneumonia in the past. Related Data Home Medications ?Medication ?Instructions ?Recorded ?Confirmed amoxicillin 875 mg-potassium 1 tab PO BID #14 tabs 05/05 clavulanate 125 mg tablet azithromycin 250 mg tablet 250 mg PO DAILY 4 days #4 t abs 09/13/24 Previous Rx's ?Medication ?Instructions ?Recorded amoxicillin 875 mg-potassium 1 tab PO BID #14 tabs 05/05 clavulanate 125 mg tablet azithromycin 250 mg tablet 250 mg PO DAILY 4 days #4 t abs 09/13/24 Allergies Allergy/AdvReac Type Severity Reaction Status Date / Time No Known Allergies Allergy Unverified 09/13/24 10:02 General Stated Complaint: RespSymp HAWK: 3 Review of Systems Narrative: Remainder of review of systems otherwise negative except for as noted in the HPI x 10. Exam Narrative Exam Narrative: General: non-toxic, no respiratory distress, comfortable HEENT: normocephalic, atraumatic, lids and lashes normal, PERRL, EOMI, anicteric sclera, no conjunctival injection, moist oral mucosa Card: regular rate and rhythm, S1S2, no murmurs, rubs, or gallops Lungs: good air entry, decreased breath sounds right base, otherwise clear to auscultation bilaterally. no wheezes, rales, rhonchi, or retractions Abd: soft, non-tender, non-distended, normal bowel sounds, no rebound or guarding, no peritoneal signs Musculoskeletal: full range of motion of arms and legs, no tenderness to palpation. no clubbing, cyanosis, or edema Neurologic: appropriate for age, strength normal Psych: alert and oriented Skin: no petechiae, no lesions, warm and dry Course Vital Signs Vital signs: Vital Signs Temperature 36.4 C 09/13/24 09:59 Pulse 67 09/13/24 09:59 Respiratory Rate 18 09/13/24 09:59 Blood Pressure 184/85 H 09/13/24 09:59 Pulse Oximetry 98 09/13/24 09:59 Temperature 36.4 C 09/13/24 10:02 Temperature Source Oral 09/13/24 10:02 Pulse 67 09/13/24 10:02 Respiratory Rate 18 09/13/24 10:02 Blood Pressure 184/85 H 09/13/24 10:02 Pulse Oximetry 98 09/13/24 10:02 Medical Decision Making 64-year-old male presents for evaluation of cough with blood-tinged sputum as well as fever. EKG does not show any acute ischemic changes. Chest x-ray confirms infiltrate. He is not hypoxic or tachycardic. Do feel that outpatient treatment is warranted. Patient started on Augmentin and azithromycin. Patient had elevated blood pressure upon arrival. Repeat blood pressure is improved but mildly high. He has no history of hypertension. I recommended follow-up with primary care to have blood pressure rechecked. PFSH All Active Problems (Updated 09/13/24 @ 11:06 by Catherine Hussein MD) Pneumonia (Acute) Lymphocytosis (Acute) Acute appendicitis (Acute) Medical History Multiple rib fractures Pneumothorax on left Complex laceration of face Laceration of scalp Surgical History S/P appendectomy (~09/2022) Social History Smoking/Tobacco Use Status: Never Smoking risk assessment performed?: Yes Alcohol Intake: current Alcohol Intake frequency: holidays/special occasions only Drug use: Never Substance use type: does not use Household members: spouse Housing: house current occupation: owns his own [employer] business Current gender identity: male Do you feel safe at home: Yes Do you feel safe in your relationship?: Yes PAWSS Have you Been Recently Intoxicated or Drunk Within the Last 30 days?: No Have you Ever Experienced Previous Episodes of Alcohol Withdrawal?: No Have you ever Experienced Withdrawal Seizures?: No Have you ever Experienced Delirium Tremens(DT)s?: No Have you ever undergone Alcohol Rehabilitation Treatment (i.e, inpt ot outpatient treatment programs)?: No Have you ever Experienced Blackouts?: No Have you ever Combined Alcohol with other Downers within the last 90 days?: No Have you ever Combined Alcohol with any other Substance of Abuse during the last 90 days?: No Positive Blood Alcohol level on Presentation? [PCS.BAL]: No Evidence of Increased Autonomic Activity (i.e. HR>120, tremor, sweating, agitation, nausea)?: No Result: 0
--- NOTE | 2024-09-13 11:05 | DI.VRAD_ITS ---
PROCEDURE INFORMATION: Exam: XR Chest Exam date and time: 09/13/2024 10:33 AM Age: 64 years old Clinical indication: Bronchospasm and fever TECHNIQUE: Imaging protocol: Radiologic exam of the chest. Views: 2 views. COMPARISON: CT CHEST/ABD/PEL W 07/29/2020 3:40 PM FINDINGS: Limitations: Low lung volumes. Lungs: Mild asymmetric hazy opacity and increased lung markings in the right mid lung zone. These findings are new compared to the prior chest CT. Lungs otherwise clear. Pleural spaces: Unremarkable. No pleural effusion. No pneumothorax. Heart/Mediastinum: Hazy opacity partially obscuring the right heart border, corresponding to prominent pericardial fat pad seen on prior chest CT. Heart size within normal limits. Bones/joints: Old fractures again noted of the right lateral 4th through 6th ribs. IMPRESSION: New mild asymmetric hazy opacity and increased lung markings in the right mid lung zone. These findings are concerning for pneumonia in light of clinical history. Dictated and Authenticated by: Minnie Moore MD. Orderin Keenan Alexander MD
[2024-09-13] MEDS: Amoxicillin 875/Clav. 125 TAB PO (11:19)
[2024-09-13] MEDS: Azithromycin 250 MG TAB 500 MG PO (11:19)
== END 2024-09-13 11:24 | disposition home or self-care (01) ==
PROVIDERS: Emergency Provider Emergency Medicine Emergency Medical Services; PCP Physician Assistant Medical
DX: J18.9 Pneumonia, unspecified organism (principal)
CPT/HCPCS: 99284 ×2; 93005; 71046; 93010